=== PATIENT | male | born 1975 | race Caucasian/White ===

== ENCOUNTER 2018-06-29 19:29 | Emergency (ER) | payer OTHER ==
[2018-06-29 19:34] VITALS: BP 151/97; PULSE 66; TEMP 98.5; BMI 34.0
--- NOTE | 2018-06-29 19:53 | PDOC ---
History of Present Illness - General Chief Complaint: Pain Stated Complaint: FLARE/UP History Source: Patient Exam Limitations: No Limitations - History of Present Illness Initial Comments: 06/29/18 19:50 Patient is a 43 year old male with h/o htn, diverticulitis c/o LLQ abd pain assoc/w diarrhea x 3 days. States has a h/o diverticulitis and thinks he is having a flareup of symptoms. States pain to the left lower quadrant 3/10 describes it as a discomfort. Denies blood in the stool, fever, chills, nausea , vomiting. States he is going [place] to the country to [facility] tomorrow and did not want to be sick while there. He says appointment with Dr. Lundy as soon he gets back. PMD: Dr. Lundy PMHX: As above PSOCHx: neg etoh, drug, cig ALL: ASA GENERAL/CONSTITUTIONAL: No fever or chills. No weakness. No weight change. HEAD, EYES, EARS, NOSE AND THROAT: No change in vision. No ear pain or discharge. No sore throat. CARDIOVASCULAR: No chest pain or shortness of breath. RESPIRATORY: No cough, wheezing, or hemoptysis. GASTROINTESTINAL: No nausea, vomiting, (+) diarrhea, (-) constipation. No rectal bleeding. GENITOURINARY: No dysuria, frequency, or change in urination. MUSCULOSKELETAL: No joint or muscle swelling or pain. No neck or back pain. SKIN AND BREASTS: No rash or easy bruising. NEUROLOGIC: No headache, vertigo, loss of consciousness, or loss of sensation. PSYCHIATRIC: No depression or anxiety. ENDOCRINE: No increased thirst. No abnormal weight change. HEMATOLOGIC/LYMPHATIC: No anemia, easy bleeding, or history of blood clots. ALLERGIC/IMMUNOLOGIC: No hives or skin allergy. No latex allergy. GENERAL: The patient is awake, alert, and fully oriented, in no acute distress. HEAD: Normal with no signs of trauma. EYES: Pupils equal, round and reactive to light, extraocular movements intact, sclera anicteric, conjunctiva clear. ENT: Ears normal, nares patent, oropharynx clear without exudates. Moist mucous membranes. NECK: Normal range of motion, supple without lymphadenopathy, JVD, or masses. LUNGS: Breath sounds equal, clear to auscultation bilaterally. No wheezes, and no crackles. HEART: Regular rate and rhythm, normal S1 and S2 without murmur, rub. ABDOMEN: Soft, (+) mild tenderness, normoactive bowel sounds. No guarding, no rebound. No masses. EXTREMITIES: Normal range of motion, no edema. No clubbing or cyanosis. No cords, erythema, or tenderness. NEUROLOGICAL: Cranial nerves II through XII grossly intact. Normal speech, normal gait. PSYCH: Normal mood, normal affect. SKIN: Warm, Dry, normal turgor, no rashes or lesions noted. Past History - Past Medical History Allergies/Adverse Reactions: Allergies Allergy/AdvReac Type Severity Reaction Status Date / Time aspirin Allergy Severe Swelling Verified 06/29/18 19:35 Home Medications: Ambulatory Orders Lisinopril [Zestril] 20 mg PO DAILY 02/06/16 Amoxicillin/Potassium Clav [Augmentin 875-125 Tablet] 1 each PO BID #14 tablet 06/29/18 COPD: No GI Disorders: Yes (diverticulitis) HTN: Yes - Suicide/Smoking/Psychosocial Hx Smoking History: Never smoked Have you smoked in the past 12 months: No Information on smoking cessation initiated: No Hx Alcohol Use: No Drug/Substance Use Hx: No Substance Use Type: None *Physical Exam - Vital Signs Last Vital Signs Temp Pulse Resp BP Pulse Ox 98.5 F 66 16 151/97 100 06/29/18 19:32 06/29/18 19:32 06/29/18 19:32 06/29/18 19:32 06/29/18 19:32 Medical Decision Making - Medical Decision Making 06/29/18 19:50 Patient is a 43 year old male with h/o htn, diverticulitis c/o LLQ abd pain assoc/w diarrhea x 3 days. States has a h/o diverticulitis and thinks he is having a flareup of symptoms. States pain to the left lower quadrant 3/10 describes it as a discomfort. Denies blood in the stool, fever, chills, nausea , vomiting. States he is going on to the country to [facility] tomorrow and did not want to be sick while there. He says appointment with Dr. Lundy as soon he gets back. Patient with symptoms of diverticulitis, does not show signs of sepsis. We'll treat with Augmentin. I discussed the physical exam findings, ancillary test results and final diagnoses with the patient. I answered all of the patient's questions. The patient was satisfied with the care received and felt comfortable with the discharge plan and treatment plan. The Patient agrees to follow up with the primary care physician within 24-72 hours. *DC/Admit/Observation/Transfer Diagnosis at time of Disposition: Diverticula of colon Qualifiers: Diverticulosis bleeding: diverticulosis without bleeding Qualified Code(s): K57.30 - Diverticulosis of large intestine without perforation or abscess without bleeding - Discharge Dispostion Disposition: HOME Condition at time of disposition: Stable - Prescriptions Prescriptions: Amoxicillin/Potassium Clav [Augmentin 875-125 Tablet] 1 each PO BID #14 tablet - Referrals Referrals: Ranjan Lundy MD [Primary Care Provider] - - Patient Instructions Printed Discharge Instructions: DI for Diverticulitis Additional Instructions: Your Discharge Instructions: You must call primary care physician within 24 hours to arrange follow-up. Return to the Emergency Department with any new, persistent or worsening symptoms, for fever, chills, SOB, dizziness or any other concerning changes that may occur. - Post Discharge Activity
[2018-06-29] MEDS ORDERED: AMOX TR/POT CLAV 875MG/125MG TABLETS (FP) PO ONE (20:00)
[2018-06-29] MEDS ORDERED: AMOX TR/POT CLAV 875MG/125MG TABLETS (FP) ONE (20:08)
== END 2018-06-29 20:25 | disposition home or self-care (01) ==
LOC: JER 19:29
DX: K57.30 Diverticulosis of large intestine without perforation or abscess without bleeding (principal); I10 Essential (primary) hypertension
CPT/HCPCS: 99283-25

== ENCOUNTER 2019-02-07 18:48 | Emergency (ER) | payer OTHER ==
[2019-02-07 18:56] VITALS: TEMP 98; BMI 34.7
--- NOTE | 2019-02-07 19:44 | PDOC ---
History of Present Illness - General Chief Complaint: Headache Stated Complaint: HEADACHE/HIGH/B/P Time Seen by Provider: 02/07/19 19:41 History Source: Patient Exam Limitations: No Limitations - History of Present Illness Initial Comments: Jan Lira is a 43 yo M w a hx of HTN, pre diabetes, HCL and diverticulitis who presents to the [facility] er via private auto with a headache and elevated blood pressure. BP at home today was 159/110 and this was associated with a 9/10 pain left sided headache which rapped around to the right. which was mildly relieved with tylenol. He googled HTN and headache which scared him. He sates his pain worsens bending forward. Right now in the ER his headache is a 4/10 in intensity. The head pain is not painful to touch. He takes lisinopril for HTN and states he has been compliant with his meds. Denies any fevers, N/V, auras, Denies photophobia/phonophobia. Denies lightheadedness, dizziness, room spinnign, syncope, diarrhea, decreased PO intake. Denies tingling, back pain, chest pain, abdominal pain. Denies neck pain , nuchal rigidity. Denies head trauma. Denies floaters or visual field defects. PCP: Ranjan Lundy PSH: None reported Social Hx: Denies smoking, drinking, or other substance usage Allergies: Aspirin Past History - Past Medical History Allergies/Adverse Reactions: Allergies Allergy/AdvReac Type Severity Reaction Status Date / Time aspirin Allergy Severe Swelling Verified 02/07/19 18:55 Home Medications: Ambulatory Orders Lisinopril [Zestril] 20 mg PO DAILY 02/06/16 Amoxicillin/Potassium Clav [Augmentin 875-125 Tablet] 1 each PO BID #14 tablet 06/29/18 COPD: No GI Disorders: Yes (diverticulitis) HTN: Yes - Psycho Social/Smoking Cessation Hx Smoking History: Never smoked Have you smoked in the past 12 months: No Hx Alcohol Use: No Drug/Substance Use Hx: No Substance Use Type: None Review of Systems - Review of Systems Able to Perform ROS?: Yes Comments:: CONSTITUTIONAL: Absent: fever, no chills, no fatigue EYES: Absent: visual changes ENT: Absent: ear pain, no sore throat CARDIOVASCULAR: Absent: chest pain, no palpitations RESPIRATORY: Absent: cough, no SOB GI: Absent: abdominal pain, no nausea, no vomiting, no constipation, no diarrhea GENITOURINARY: Absent: dysuria, no frequency, no hematuria MUSKULOSKELETAL: Absent: back pain, no arthralgia, no myalgia SKIN: Absent: rash NEURO: Present: headache *Physical Exam - Vital Signs Last Vital Signs Temp Pulse Resp BP Pulse Ox 98 F 72 18 151/99 100 02/07/19 18:52 02/07/19 18:52 02/07/19 18:52 02/07/19 18:52 02/07/19 18:52 - Physical Exam Comments: GENERAL: Well-appearing, well-nourished. No apparent distress. HEENT: Normocephalic, atraumatic. PERRL, EOM intact. CARDIOVASCULAR: Normal S1, S2. Regular rate and rhythm. PULMONARY: No evidence of respiratory distress. Lungs clear to auscultation bilaterally. No wheezing, rales or rhonchi. ABDOMEN: Soft, non-distended, non-tender. EXTREMITIES: Normal ROM in all four extremities. No gross deformities. SKIN: Warm, dry. No rash NEUROLOGICAL: Alert, awake, appropriate. Cranial nerves 2-12 intact. No deficits to light touch in face, upper extremities and lower extremities. No motor deficits in the in face, upper extremities and lower extremities. Normoreflexic in the upper and lower extremities. Normal speech. Toes are down-going bilaterally. Gait is normal without ataxia. ED Treatment Course - LABORATORY CBC & Chemistry Diagram: 02/07/19 20:28 02/07/19 20:28 Medical Decision Making - Medical Decision Making Jan Lira is a 43 yo M w a hx of HTN, pre diabetes, HCL and diverticulitis who presents to the [facility] er via private auto with a headache and elevated blood pressure. BP at home today was 159/110 and this was associated with a 9/10 pain left sided headache which rapped around to the right. which was mildly relieved with tylenol. He googled HTN and headache which scared him. He sates his pain worsens bending forward. Right now in the ER his headache is a 4/10 in intensity. The head pain is not painful to touch. He takes lisinopril for HTN and states he has been compliant with his meds. Denies any fevers, N/V, auras, Denies photophobia/phonophobia. Denies lightheadedness, dizziness, room spinnign, syncope, diarrhea, decreased PO intake. Denies tingling, back pain, chest pain, abdominal pain. Denies neck pain , nuchal rigidity. Denies head trauma. Denies floaters or visual field defects. Vital Signs Temp Pulse Resp BP Pulse Ox 98 F 73 20 135/87 100 02/07/19 18:52 02/07/19 20:39 02/07/19 20:39 02/07/19 20:39 02/07/19 20:39 DDx IBNLT: Tension headache, HTN urgency/emergency, CVA/TIA, migraine, cluster, meningitis/encephalis, SAH, intracranial mass/tumor Plan: Labs, Head CT, EKG, IV hydration, analgesia, re-assess. Labs: Unremarkable Head CT: No acute pathology Re-assessment: Patient's headache subsided after supportive care and he has no current complaints. Disposition: Home with PCP and neuro FU Discharge - Discharge Information Problems reviewed: Yes Clinical Impression/Diagnosis: Headache Qualifiers: Headache type: unspecified Headache chronicity pattern: unspecified pattern Intractability: not intractable Qualified Code(s): R51 - Headache Condition: Improved Disposition: HOME - Admission No - Follow up/Referral Referrals: Denisha Guerrero MD [Staff Physician] - Ranjan Lundy MD [Staff Physician] - - Patient Discharge Instructions Patient Printed Discharge Instructions: Tension Headache, Sinus Headache, DI for Migraine Additional Instructions: You came into the ER with a headache which went away after we gave you reglan, benadryl, and tylenol. Your blood pressure was also elevated when you came into the ER but went down to a normal level after your headache an pain went away. We are giving you the number of a neurologist to call and schedule an appointment with. Please call up the neurologist in the next 3 to 5 days and schedule an appointment. Please also schedule a follow up appointment with your primary care doctor to make sure your blood pressure is under control. Come back to the ER immediately if your headache worsens, you feel nauseous, start vomiting, or have any other new or worsening concerns. Thank you for coming to the [facility] ER. We hope you feel better soon! Print Language: ANDORRAN - Post Discharge Activity
[2019-02-07] MEDS ORDERED: SODIUM CHLORIDE 0.9% 500 ML INFUS.BAG IV ONE (20:11)
[2019-02-07] MEDS ORDERED: METOCLOPRAMIDE HCL INJECTION 10 MG/2 ML VIAL IVPUSH ONE (20:14)
[2019-02-07] MEDS ORDERED: METOCLOPRAMIDE HCL INJECTION 10 MG/2 ML VIAL ONE (20:18)
[2019-02-07 20:32] LABS: BASO % 0.5 % (0-2.0); EOS % 3.5 % (0-4.5); HEMATOCRIT 41.9 % (35.4-49); HEMOGLOBIN 14.1 GM/dL (11.7-16.9); LYMPH % 31.1 % (8-40); MCH 28.7 pg (25.7-33.7); MCHC 33.8 g/dl (32.0-35.9); MEAN CELL VOLUME 85.1 fl (80-96); MEAN PLT VOLUME 8.7 fl (7.5-11.1); MONO % 7.9 % (3.8-10.2); PLATELET COUNT 157 K/MM3 (134-434); RBC 4.93 M/mm3 (4.00-5.60); RDW 13.1 % (11.9-15.9); WHITE BLOOD COUNT 6.3 K/mm3 (4.0-10.0)
[2019-02-07 20:40] VITALS: BP 135/87; PULSE 73
[2019-02-07 21:06] LABS: ALBUMIN 4.2 g/dl (3.4-5.0); BILIRUBIN,TOTAL 0.4 mg/dL (0.2-1); BLOOD UREA NITROGEN 13.2 mg/dL (7-18); CALCIUM 8.8 mg/dL (8.5-10.1); POTASSIUM 4.2 mmol/L (3.5-5.1); TOT PROT 7.5 g/dl (6.4-8.2)
--- NOTE | 2019-02-07 21:10 | PDOC ---
Attending Attestation - Resident Resident Name: Gerardo Quinn - ED Attending Attestation I have performed the following: I have examined & evaluated the patient, The case was reviewed & discussed with the resident, I agree w/resident's findings & plan - HPI HPI: 02/07/19 21:10 Pt comes with MOYA; headache gets worse when he leans forward - Physicial Exam PE: 02/07/19 23:09 Normal exam. Heart S1 S2 RRR Lungs clear BP came down to 150/95; headache improved; neuro exam normal Pt is overweight. - Medical Decision Making 02/07/19 21:10 Pt has normal CBC and chem. 02/07/19 21:52 Patient Name: MARYCARMEN CH THIS IS A PRELIMINARY REPORT FROM [facility] DATE OF SERVICE: 2019-02-07 20:52:03 IMAGES: 250 EXAM: HEAD CT WITHOUT CONTRAST HISTORY: Evaluate for intracranial hemorrhage. Procedure: Contiguous axial tomographic sections were obtained from the base of the skull to the vertex without the use of intravenous contrast. Sagittal and coronal reformatted images are provided. COMPARISON: None. Preliminary findings/impression: 1. No evidence of acute intracranial hemorrhage on this study. 2. Fatty replacement of the bilateral parotid glands. 02/07/19 23:10 Pt understands that LP is needed to r/o bleeding in the brain 100%; feeling better; refusing LP at this time.
[2019-02-07] MEDS ORDERED: KETOROLAC TROMETHAMINE 30 MG/1 ML VIAL IVPUSH ONE (21:13)
[2019-02-07] MEDS ORDERED: ACETAMINOPHEN 1000 MG/100 ML VIAL (NON FORMULARY) IVPB ONE (21:17)
[2019-02-07] MEDS ORDERED: ACETAMINOPHEN INJECTION 100 ML IVPB ONE (21:19)
--- NOTE | 2019-02-08 13:42 | EKG ---
Test Reason : Blood Pressure : / mmHG Vent. Rate : 063 BPM Atrial Rate : 063 BPM P-R Int : 150 ms QRS Dur : 088 ms QT Int : 404 ms P-R-T Axes : 036 032 025 degrees QTc Int : 413 ms NORMAL SINUS RHYTHM NORMAL ECG WHEN COMPARED WITH ECG OF 12-MAR-2010 23:18, NO SIGNIFICANT CHANGE WAS FOUND Confirmed by MD Deras Edward ([id number]) on 02/08/2019 1:42:14 PM Referred By: Confirmed By:Kev Deras MD
== END 2019-02-07 22:29 | disposition home or self-care (01) ==
LOC: JER 18:48
PROC: 3E033NZ Introduction of Analgesics, Hypnotics, Sedatives into Peripheral Vein, Percutaneous Approach (ICD-10-PCS; principal; 2019-02-07)
PROC: 3E033GC Introduction of Other Therapeutic Substance into Peripheral Vein, Percutaneous Approach (ICD-10-PCS; 2019-02-07)
PROC: 3E033GC Introduction of Other Therapeutic Substance into Peripheral Vein, Percutaneous Approach (ICD-10-PCS; 2019-02-07)
DX: R51 Headache (principal); I10 Essential (primary) hypertension; E78.00 Pure hypercholesterolemia, unspecified; Z87.19 Personal history of other diseases of the digestive system; Z88.6 Allergy status to analgesic agent
CPT/HCPCS: 36415; 70450-TC; 80053; 85025; 93005; 93010; 99284-25; J0131

== ENCOUNTER 2020-08-19 05:11 | Day surgery (SDC) | payer OTHER ==
[2020-08-16 15:56] VITALS: BMI 34.7
[2020-08-19 08:37] VITALS: TEMP 97.3
[2020-08-19 09:13] VITALS: BP 112/74; PULSE 70
== END 2020-08-19 09:16 | disposition home or self-care (01) ==
LOC: JASU-ENDO 05:11
PROVIDERS: ATTEND Internal Medicine Gastroenterology
PROC: 0DBN8ZX Excision of Sigmoid Colon, Via Natural or Artificial Opening Endoscopic, Diagnostic (ICD-10-PCS; 2020-08-19)
PROC: 0DBP8ZX Excision of Rectum, Via Natural or Artificial Opening Endoscopic, Diagnostic (ICD-10-PCS; principal; 2020-08-19 08:08)
DX: Z12.11 Encounter for screening for malignant neoplasm of colon (principal); K63.5 Polyp of colon; K62.1 Rectal polyp; K64.8 Other hemorrhoids; K64.4 Residual hemorrhoidal skin tags; Z86.010 Personal history of colon polyps; Z83.71 Family history of colonic polyps
CPT/HCPCS: 82962; 88305-TC

== ENCOUNTER 2021-05-25 19:27 | Emergency (ER) | payer OTHER ==
[2021-05-25 19:38] VITALS: BP 146/96; PULSE 61; TEMP 98.1; BMI 34.7
[2021-05-25] MEDS ORDERED: SODIUM CHLORIDE 0.9% 500 ML INFUS.BAG IV ONE (20:06)
[2021-05-25] MEDS ORDERED: FAMOTIDINE 20 MG/50 ML IVPB 20 MG/50 ML MG IVPB ONE ×2 (20:06→20:19)
[2021-05-25] MEDS ORDERED: MAG HYDROX/AL HYDROX/SIMETH -MYLANTA- ORAL SUSPENSION PO ONE (20:06)
[2021-05-25] MEDS ORDERED: MAG HYDROX/AL HYDROX/SIMETH 30 ML UNIT-DOSE CUP ONE (20:18)
[2021-05-25 20:53] LABS: BASO % 0.4 % (0-2.0); EOS % 1.3 % (0-4.5); HEMATOCRIT 44.2 % (35.4-49); HEMOGLOBIN 14.6 GM/dL (11.7-16.9); LYMPH % 30.8 % (8-40); MCH 27.2 pg (25.7-33.7); MEAN CELL VOLUME 82.4 fl (80-96); MEAN PLT VOLUME 9.2 fl (7.5-11.1); NEUT % 59.5 % (42.8-82.8); PLATELET COUNT 182 10^3/uL (134-434); RBC 5.36 M/mm3 (4.00-5.60); RDW 13.4 % (11.9-15.9); WHITE BLOOD COUNT 6.3 K/mm3 (4.0-10.0)
[2021-05-25 20:54] LABS: URINE APPEARANCE CLEAR; URINE BILIRUBIN NEGATIVE (NEGATIVE); URINE COLOR YELLOW; URINE GLUCOSE (UA) NEGATIVE (NEGATIVE); URINE KETONE NEGATIVE (NEGATIVE); URINE LEUK ESTERASE NEGATIVE (NEGATIVE); URINE NITRITE NEGATIVE (NEGATIVE); URINE PROTEIN NEGATIVE (NEGATIVE); URINE UROBILINOGEN 0.2 mg/dL (0.2-1.0)
[2021-05-25 21:17] LABS: ALBUMIN 4.5 g/dl (3.4-5.0); CALCIUM 9.2 mg/dL (8.5-10.1)
[2021-05-25 21:18] LABS: BLOOD UREA NITROGEN 23.9 mg/dL (7-18)
[2021-05-25 21:21] LABS: CREATININE 1.1 mg/dL (0.55-1.3)
[2021-05-25 21:22] LABS: BILIRUBIN,TOTAL 0.4 mg/dL (0.2-1); TOT PROT 8.1 g/dl (6.4-8.2)
== END 2021-05-25 21:40 | disposition home or self-care (01) ==
LOC: JER 19:27
PROC: 3E033GC Introduction of Other Therapeutic Substance into Peripheral Vein, Percutaneous Approach (ICD-10-PCS; principal; 2021-05-25)
DX: R10.11 Right upper quadrant pain (principal); R74.8 Abnormal levels of other serum enzymes
CPT/HCPCS: 36415; 76705-TC; 80053; 81003; 83690; 85025; 87086; 99284-25

== ENCOUNTER 2024-12-23 06:26 | Day surgery (SDC) | payer OTHER ==
[2024-12-15 13:58] VITALS: BMI 32.6
[2024-12-23 08:41] VITALS: TEMP 98
[2024-12-23 09:04] VITALS: PULSE 53
[2024-12-23 09:17] VITALS: BP 120/59; RESP 18
== END 2024-12-23 09:15 | disposition home or self-care (01) ==
LOC: JASU-ENDO 06:26
PROVIDERS: ATTEND Internal Medicine Gastroenterology
PROC: 0DBN8ZX Excision of Sigmoid Colon, Via Natural or Artificial Opening Endoscopic, Diagnostic (ICD-10-PCS; 2024-12-23)
PROC: 0DBP8ZX Excision of Rectum, Via Natural or Artificial Opening Endoscopic, Diagnostic (ICD-10-PCS; 2024-12-23)
PROC: 0DBC8ZX Excision of Ileocecal Valve, Via Natural or Artificial Opening Endoscopic, Diagnostic (ICD-10-PCS; principal; 2024-12-23 09:00)
DX: Z12.11 Encounter for screening for malignant neoplasm of colon (principal); D12.8 Benign neoplasm of rectum; D12.0 Benign neoplasm of cecum; D12.5 Benign neoplasm of sigmoid colon; K64.8 Other hemorrhoids; K57.30 Diverticulosis of large intestine without perforation or abscess without bleeding; Z86.0100 Personal history of colon polyps, unspecified; Z83.719 Family history of colon polyps, unspecified
CPT/HCPCS: 82962